=== PATIENT | female | born 1990 | race African-American/Black ===

== ENCOUNTER 2017-11-04 17:49 | Emergency (ER) | payer MEDICAID ==
[2017-11-04 18:30] VITALS: BP 188/113
--- NOTE | 2017-11-04 18:37 | ED ---
Norman Harris Natalie, scribed for Willy Scott MD on 11/04/17 at 1804 . - HPI Summary HPI Summary: The pt is a 27 y/o F presenting to the ED c/o abd pain starting two hours ago. The pt is 7 months and may be having contractions. The abd pain started as being intermittent, and has since gotten closer together and more constant. She states there was a tearing sensation in her URQ. Her OBGYN is Dr. Puentes. - History of Current Complaint Stated Complaint: POSSIBLE LABOR Hx Obtained From: Patient Chief Complaint: Other: - abd pain, contractions at 7 months Severity: Severe Current Severity: Severe Character: Cramping Aggravating Factors: Nothing Alleviating Factors: Nothing Associated Signs and Symptoms: Positive: Other: - tearing sensation in right abd PMH/Surg Hx/FS Hx/Imm Hx Opthamlomology History: Denies: Hx Legally Blind EENT History: Denies: Hx Deafness Review of Systems Positive: Abdominal Pain Genitourinary: Other - contractions All Other Systems Reviewed And Are Negative: Yes Physical Exam - Physical Exam Triage Information Reviewed: Yes Vital Signs Reviewed: Yes Appearance: Positive: Well-Appearing, Pain Distress - moderate Skin: Positive: Warm, Skin Color Reflects Adequate Perfusion, Dry Head/Face: Positive: Normal Head/Face Inspection Eyes: Positive: EOMI, JARON Neck: Positive: Supple, Nontender Respiratory/Lung Sounds: Positive: Clear to Auscultation, Breath Sounds Present Cardiovascular: Positive: Tachycardia Abdomen Description: Positive: Nontender, Other: - gravid, firm uterus, no Bowel Sounds: Positive: Present Musculoskeletal: Positive: Normal, Strength/ROM Intact Neurological: Positive: Normal, Sensory/Motor Intact, Alert, Oriented to Person Place, Time Psychiatric: Positive: Affect/Mood Appropriate Diagnostics - Vital Signs Vital Signs Temp Pulse Resp BP Pulse Ox 11/04/17 18:26 0 F 118 25 188/113 98 11/04/17 17:49 98.7 F 116 25 188/118 98 - Laboratory Lab Statement: Any lab studies that have been ordered have been reviewed, and results considered in the medical decision making process. Course/Dx - Course Course Of Treatment: Medications reviewed. Allergies noted. DISCUSSED WITH DR BERG WHO ASKS THE PATIENT BE SENT TO L & D. - Diagnoses Provider Diagnoses: Abdominal pain in Discharge - Sign-Out/Discharge Documenting (check all that apply): Discharge - Discharge Plan Condition: Stable Disposition: HOME Discharge Disposition Comment: The pt is discharged to [facility]. Patient Education Materials: (ED), Abdominal Pain in (ED) Referrals: No Primary Care Phys,NOPCP [Primary Care Provider] - Additional Instructions: GO DIRECTLY TO LABOR AND DELIVERY - Billing Disposition and Condition Condition: STABLE Disposition: HOME The documentation as recorded by the Norman bishop Natalie accurately reflects the service I personally performed and the decisions made by me, Willy Scott MD.
== END 2017-11-04 18:26 | disposition home or self-care (01) ==
LOC: ED 17:49
DX: O26.893 Other specified pregnancy related conditions, third trimester (principal); Z3A.30 30 weeks gestation of pregnancy; R10.9 Unspecified abdominal pain
CPT/HCPCS: 99282

== ENCOUNTER 2017-11-04 18:45 | Emergency (ER) | payer MEDICAID ==
--- NOTE | 2017-11-04 20:23 | RAD ---
Indication: RIGHT lower abdominal pain. 7 months . Comparison: No relevant prior exams available on the [facility] for comparison. Technique: RIGHT unilateral renal ultrasound. Report: 12.9 x 6.0 x 5.2 cm RIGHT kidney demonstrates normal cortical echogenicity and absence of focal lesions, conspicuous stones, or hydronephrosis. Negative for perinephric fluid. IMPRESSION: Negative RIGHT renal ultrasound.
--- NOTE | 2017-11-04 20:28 | RAD ---
INDICATION: RIGHT lower quadrant pain. 7 months . COMPARISON: No relevant prior exams available on the [facility] PACS for comparison. TECHNIQUE: Ultrasound of the right lower quadrant. REPORT AND IMPRESSION: Acoustic window is limited due to gravid uterus. No RIGHT lower quadrant free fluid or lymphadenopathy visualized. The appendix could not be visualized. Nondiagnostic exam due to nonvisualization of the appendix.
--- NOTE | 2017-11-04 20:47 | ED ---
Adrian Harris Tiffany, scribed for Argelia Multani MD on 11/04/17 at 1951 . Abdominal Pain/Female - HPI Summary HPI Summary: The patient is a 27 year old female sent from Dr. Goyal (OBGYN) back to [facility] for further evaluation of RLQ abdominal pain since 16:00 today. States that she felt sharp, stretching, tightening sensation while washing dishes. The patient rates the pain 8/10 in severity. Symptoms aggravated by nothing. Symptoms alleviated by nothing. Has not treated the pain with anything. Patient denies vaginal bleeding, vaginal discharge, nausea, vomiting, diarrhea and fever. Patient is 35 weeks , EDC 12/16/17. No problems with before today per pt. However, Dr. Goyal states that he has no records on her because she has not been established care with his office yet, as she has just moved up from [place], but she does have a scheduled appointment with him. Patient was BIBA earlier today to [facility] and sent to Dr. Goyal in labor and delivery. Pt was determined not to be in labor by nonstress test by Dr. Goyal and FHR was 140, and uterus was nontender. Labs and urine were done while pt was on L&D and were reviewed and not repeated while in the ED the second time (this ED visit). Pt was not given anything for pain when she saw Dr. Goyal. Pt feels like she has had yeast infection recently. Dr. Goyal advised pt to see him 11/06/17 if she is cleared for other medical causes of her RLQ abd pain. Patient has been before, A0. Denies history of ovarian problems. No abdominal surgeries. While in room, BP 149/95, heart rate 99, O2 sat 100, and resp 20. Dr. Goyal noted some elevated BP's while in L&D, but then BP was 130's/70's, so he did not treat the HTN. Pt had hx gestational HTN with her prior . Pt had no protein in her urine or elevated LFT's to suggest eclampsia when in L&D. - History of Current Complaint Chief Complaint: EDAbdPain Stated Complaint: ABD PAIN Hx Obtained From: Patient ?: Yes Onset/Duration: Sudden Onset, Lasting Hours - Since 16:00 today, Still Present Timing: Constant Severity Currently: Moderate Pain Intensity: 7 Location: Other - Right sided Character: Other: - sharp, stretching, tightening sensation Aggravating Factor(s): Nothing Alleviating Factor(s): Nothing Associated Signs and Symptoms: Positive: Negative - vaginal bleeding, vaginal discharge, nausea, vomiting, diarrhea and fever Allergies/Adverse Reactions: Allergies Allergy/AdvReac Type Severity Reaction Status Date / Time Penicillins Allergy Hives Verified 11/04/17 18:51 pcn Allergy Hives Uncoded 11/04/17 18:51 PMH/Surg Hx/FS Hx/Imm Hx Previously Healthy: No - gestational HTN with prior History: Denies: Hx Kidney Stones Sensory History: Denies: Hx Legally Blind, Hx Deafness Opthamlomology History: Denies: Hx Legally Blind - Surgical History Surgery Procedure, Year, and Place: No abdominal surgeries - Immunization History Date of Influenza Vaccine: fall 2016 Infectious Disease History: No Infectious Disease History: Denies: Traveled Outside the [place] in Last 30 Days - Family History Known Family History: Positive: Other - Mother and older sister with hx of kidney stones - Social History Lives: With Family Alcohol Use: None Hx Substance Use: No Substance Use Type: Reports: None Hx Tobacco Use: No Smoking Status (MU): Never Smoked Tobacco Review of Systems Negative: Fever Cardiovascular: Negative Respiratory: Negative Positive: Abdominal Pain - RLQ; sharp, stretching, tightening sensation . Negative: Vomiting, Diarrhea, Nausea Genitourinary: Negative - Vaginal bleeding, vaginal discharge Positive: no symptoms reported Skin: Negative Neurological: Negative Psychological: Normal All Other Systems Reviewed And Are Negative: Yes Physical Exam - Summary Physical Exam Summary: Appearance: Patient is very uncomfortable, lying on her left side, restless on stretcher with pain. She is . She is hypertensive. Skin: Warm, color reflects adequate perfusion, dry Head: Normal Head/Face inspection Eyes: Conjunctiva clear ENT: Normal inspection Neck: Supple, no nodes, no JVD. Respiratory: Lungs clear, Normal breath sounds, no respiratory distress Cardio: RRR, No murmur, pulses normal, brisk capillary refill Abdomen: Fundus is at the costal margin. movement is palpable. Uterus is nontender. She is tender in RLQ with guarding, no rebound; No CVAT Bowel sounds: present Musculoskeletal: Strength Intact/ ROM intact. No calf tenderness. No edema. Psychological: Normal Neuro: Alert, muscle tone normal, no focal deficit, not hyperreflexic Triage Information Reviewed: Yes Vital Signs On Initial Exam: Initial Vitals Temp Pulse Resp BP Pulse Ox 98.3 F 93 14 0/0 99 11/04/17 18:52 11/04/17 18:52 11/04/17 18:52 11/04/17 18:52 11/04/17 18:52 Vital Signs Reviewed: Yes Diagnostics - Vital Signs Vital Signs Temp Pulse Resp BP Pulse Ox 11/04/17 18:52 98.3 F 93 14 0/0 99 - Laboratory Lab Statement: Any lab studies that have been ordered have been reviewed, and results considered in the medical decision making process. - Additional Comments Diagnostic Additional Comments: Negative RIGHT renal ultrasound per radiologist. ED physician has reviewed this report. Per radiologist, ppendix ultrasound shows Acoustic window is limited due to gravid uterus. No RIGHT lower quadrant free fluid or lymphadenopathy visualized. The appendix could not be visualized. Nondiagnostic exam due to nonvisualization of the appendix. ED physician has reviewed this report. Re-Evaluation - Re-Evaluation First Eval Re-Evaluation Time: 20:37 Change: Improved Comment: Patient is more comfortable and is still having the RLQ pain. BP was 158/92 then 138/76 on repeat. Second Eval Re-Evaluation Time: 22:00 Change: Unchanged Comment: BP still 150's systolic. Pain improved but would like pain med IV. Abdominal Pain Fem Course/Dx - Course Course Of Treatment: Patient allergies noted. Labs from L&D just prior to this ED visit, were reviewed with normal white count, no blood or protein in urine, normal LFT's. Negative renal ultrasound for hydronephrosis or ureteral calculus. Appendix was not visualized in appendix ultrasound. Dr. Hedrick ( surgery) consults and advises that her presentation is not consistent with acute appendicitis. Dr. Goyal (OBGYN) recommends getting formal and ovary ultrasounds. If blood pressure remains above 150 systolic, 90 diastolic, then patient can be prescribed labetalol. Patient should follow up in office with Dr. Goyal, call 11/06/17 to schedule appointment. Patient will be signed out to Dr. Mckee at shift change, awaiting ultrasound reports and management of HTN and pain. - Diagnoses Differential Diagnosis: Positive: Appendicitis, Ovarian Cyst, , Other - placenta previa, abruptio placenta Provider Diagnoses: with 35 completed weeks gestation, RLQ abdominal pain, Hypertension affecting in third trimester - Provider Notifications Discussed Care Of Patient With: Talia Hedrick Time Discussed With Above Provider: 20:41 Instructed by Provider To: Other - Dr. Hedrick agrees to come down to evaluate the patient. Dr. Goyal recommended ultrasound and ovary ultrasound at 20:51. At 21:00, Dr. Hedrick does not feel it is an acute appendix. At 21:17, Dr. Goyal wants the formal ultrasound of ovary and . He says if BP remains above 150 systolic, 90 diastolic, then patient can be given labetalol. She should follow up with him in office, call 11/06/17. Discharge - Sign-Out/Discharge Documenting (check all that apply): Sign-Out Patient Signing out patient TO: Pacheco Mckee - Awaiting ultrasound report, management of HTN and pain - Discharge Plan Referrals: Sebastián Goyal MD [Medical Doctor] - 2 Days [facility] PHYSICIAN REFERRAL [Outside] - As Soon As Possible The documentation as recorded by the Adrian bishop Tiffany accurately reflects the service I personally performed and the decisions made by me, Argelia Multani MD.
--- NOTE | 2017-11-04 21:04 | CONSULT ---
Consult Consult: Surgery Consult Asked by Dr. Multani to evaluate a pt. with abdominal pain and a negative sono. Ms. Platt is a 27 yo 35 wk gravid female who reports that about 4-5 hours ago she felt a sharp pain in the RLQ. This was followed by a "pulling" pain. After a little while the sharp pain let up, but the pulling pain persisted. She felt nauseated, but did not vomit. She denies fever; diarrhea or constipation, dysuria. She is followed by Dr. Goyal for her . She says the pain hasn't changed since that first change. PMHx: none Meds: pre-kendy vitamins. All: PCN ROS: neg. SH: neg. tob.; neg. EtOH; neg. IVDA FH: mother had cancer, possibly colon; father had heart disease PE: general: WDWN female in NAD Vital Signs 11/04/17 18:52 Temperature 98.3 F Pulse Rate 93 Respiratory 14 Rate Blood Pressure 0/0 (mmHg) O2 Sat by Pulse 99 Oximetry HEENT: anicteric sclerae, moist oral mucosa, neg. cervical adenopathy lungs: clear to ausc. heart: reg. no murmurs abd: good BS, soft, gravid, mildly tender in right suprapubic area; no guarding or rebound; neg. CVAT ext: neg. cyanosis edema A/P: Doubt appendicitis; further management per Dr. Multani and Dr. Goyal. Thanks, CLFostnohemy
--- NOTE | 2017-11-04 22:00 | RAD ---
Indication: RIGHT side pain. 35 weeks gestation. Comparison: Limited RIGHT lower quadrant ultrasound of the same date and RIGHT renal ultrasound of the same day. Technique: Limited transabdominal obstetrical ultrasound. REPORT: Single intrauterine fetus is in cephalic presentation. Spontaneous motion and cardiac activity present. heart rate: 134 bpm. The volume of amniotic fluid is qualitatively normal. Amniotic fluid index is 15.04 cm. (Normal range 5-25 cm) The cervix could not be visualized. Anterior placenta is unremarkable for gestational age. Mean BPD: 8.62 cm corresponding to 34 weeks 6 days Mean HC: 31.80 cm corresponding to 35 weeks 6 days Mean AC: 28.25 cm corresponding to 32 weeks 2 days Mean FL: 7.08 cm corresponding to 36 weeks 3 days Composite gestational age: 34 weeks 6 days HC / AC ratio: 1.13 weight: 2341 g. +/- 342 g. Poor visualization of the four-chamber heart view on grayscale and cine loop limiting assessment. Images through the RIGHT adnexal region fails to demonstrate the RIGHT ovary. IMPRESSION: 1. Single intrauterine gestation with estimated gestational age based on this exam of 34 weeks 6 days. Normal movement and cardiac activity. Normal range amniotic fluid volume. 2. The cervix could not be visualized precluding assessment of the cervix and for placenta previa. 3. Poor visualization of the four-chamber heart view on grayscale and cine loop limiting assessment. 4. Images through the RIGHT adnexal region fails to demonstrate the RIGHT ovary.
[2017-11-04] MEDS ORDERED: diPHENhydraMINE IV* 50 MG/ML 1 ml VIAL (BENADRYL) IV ONE (22:28)
[2017-11-04] MEDS ORDERED: Morphine INJ* 4 MG/ML 1 ML CARPUJECT IV ONE (22:28)
[2017-11-04] MEDS ORDERED: Morphine INJ* 2 MG/ML 1 ML CARPUJECT ONE ×2 (22:49)
[2017-11-04] MEDS ORDERED: Morphine INJ* 2 MG/ML 1 ML CARPUJECT IV ONE (22:58)
[2017-11-05] MEDS ORDERED: Labetalol TAB* 200 MG PO ONE (00:15)
[2017-11-05 02:44] VITALS: BP 135/73
--- NOTE | 2017-11-05 05:20 | ED ---
I, ArlynPaola, scribed for Pacheco Mckee MD on 11/05/17 at 0013 . Progress - Progress Note Progress Note: Pt care assumed from Dr. Multani. Pt's BP is up, but her pain was not controlled. Benadryl/Morphine controlled pain. BP remained 141 systolic. Started Labetalol orally. Preeclampsia r/o -- no peripheral edema, LFT/Plt change, or proteinuria. Labor had been ruled out as well as renal colic and ovarian pathology. Surgery had been consulted by Dr Multani -- nl appendix on US. Webb-Arredondo vs ABD pain in preg. No torsion, appy, stone, abruption, etc. OB had seen and ruled out true labor. D/C to f/u on Monday with OB. Rx for oral labetalol. Re-Evaluation - Re-Evaluation First Eval Re-Evaluation Time: 20:37 Change: Improved Comment: Patient is more comfortable and is still having the RLQ pain. BP was 158/92 then 138/76 on repeat. Second Eval Re-Evaluation Time: 22:00 Change: Unchanged Comment: BP still 150's systolic. Pain improved but would like pain med IV. Third Eval Re-Evaluation Time: 00:12 Change: Improved Comment: Pt reports her pain is improved Course/Dx - Course Course Of Treatment: Patient allergies noted. Labs from L&D just prior to this ED visit, were reviewed with normal white count, no blood or protein in urine, normal LFT's. Negative renal ultrasound for hydronephrosis or ureteral calculus. Appendix was not visualized in appendix ultrasound. Dr. Hedrick ( surgery) consults and advises that her presentation is not consistent with acute appendicitis. Dr. Goyal (OBGYN) recommends getting formal and ovary ultrasounds. If blood pressure remains above 150 systolic, 90 diastolic, then patient can be prescribed labetalol. Patient should follow up in office with Dr. Goyal, call 11/06/17 to schedule appointment. Patient will be signed out to Dr. Mckee at shift change, awaiting ultrasound reports and management of HTN and pain. - Diagnoses Provider Diagnoses: with 35 completed weeks gestation, RLQ abdominal pain, Hypertension affecting in third trimester, Abdominal pain during - Provider Notifications Time Discussed With Above Provider: 20:41 Instructed by Provider To: Other - Dr. Hedrick agrees to come down to evaluate the patient. Dr. Goyal recommended ultrasound and ovary ultrasound at 20:51. At 21:00, Dr. Hedrick does not feel it is an acute appendix. At 21:17, Dr. Goyal wants the formal ultrasound of ovary and . He says if BP remains above 150 systolic, 90 diastolic, then patient can be given labetalol. She should follow up with him in office, call 11/06/17. - Critical Care Time Critical Care Time: 30-74 min - CCT is exclusive of separately billable procedures. Includes mult re-evals, consults and complex MDM. Discharge - Sign-Out/Discharge Documenting (check all that apply): Discharge - Discharge Plan Condition: Improved Disposition: HOME Prescriptions: Labetalol TAB* [Trandate TAB*] 200 mg PO BID #60 tab Patient Education Materials: Abdominal Pain in (ED), Hypertension During (ED) Referrals: [facility] PH[facility]IAN REFERRAL [Outside] - As Soon As Possible Sebastián Goyal MD [Medical Doctor] - 2 Days Additional Instructions: You must be rechecked by your OBGYN on Monday. Stay well hydrated. Use tylenol and or benadryl for discomfort. You must NOT use ibuprofen, aleve or aspirin Return with swelling on the legs, spots in your vision, headaches, uncontrolled pain, vomiting, fever over 100.5 or other concerns as discussed. - Billing Disposition and Condition Condition: IMPROVED Disposition: HOME The documentation as recorded by the Arlyn bishop Emily accurately reflects the service I personally performed and the decisions made by me, Pacheco Mckee MD.
== END 2017-11-05 01:00 | disposition home or self-care (01) ==
LOC: ED 18:45
DX: O26.893 Other specified pregnancy related conditions, third trimester (principal); O16.3 Unspecified maternal hypertension, third trimester; R10.31 Right lower quadrant pain; Z3A.35 35 weeks gestation of pregnancy
CPT/HCPCS: 76705; 76775; 76815; 96374; 96375; 99283; A9270-GY; J1200; J2270

== ENCOUNTER 2019-10-23 12:28 | Emergency (ER) | payer OTHER ==
--- NOTE | 2019-10-23 12:30 | UC ---
Respiratory Complaint HPI - HPI Summary HPI Summary: 29 yo female presents with URI symptoms. She tells me that for the last 3 days she has had subjective fever and subjective SOB with a dry cough. Also has fatigue and body aches. She has been taking OTC tylenol with little relief. Wants to sleep all day. She works at [employer]. She is smoking daily. Denies chest pain, abdominal pain, n/v/d/c, dysuria, back pain. No travel or known exposure to COVID. She did get a flu shot this year - History of Current Complaint Stated Complaint: SHORTNESS OF BREATH Hx Obtained From: Patient Onset/Duration: Sudden Onset Severity Initially: Moderate Severity Currently: Moderate Pain Intensity: 5 Pain Scale Used: 0-10 Numeric - Allergies/Home Medications Allergies/Adverse Reactions: Allergies Allergy/AdvReac Type Severity Reaction Status Date / Time latex Allergy Hives Verified 10/23/19 12:33 Penicillins Allergy Hives Verified 10/23/19 12:33 Home Medications: Home Medications Albuterol HFA INHALER* [Ventolin HFA Inhaler*] 1 puff INH Q6H PRN #1 mdi [Rx] Benzonatate CAP* [Tessalon 100 MG CAP*] 100 mg PO TID PRN #21 cap 10/23/19 [Rx] PMH/Surg Hx/FS Hx/Imm Hx - Additional Past Medical History Additional PMH: None - Surgical History Surgical History: None Surgery Procedure, Year, and Place: No abdominal surgeries - Family History Known Family History: Positive: Other - Mother and older sister with hx of kidney stones - Social History Occupation: Employed Full-time Lives: With Family Alcohol Use: None Substance Use Type: None Smoking Status (MU): Light Every Day Tobacco Smoker Type: Cigarettes - Immunization History Most Recent Influenza Vaccination: none Most Recent Pneumonia Vaccination: not indicated Review of Systems All Other Systems Reviewed And Are Negative: No Constitutional: Positive: Fever - subjective, Fatigue, Other - Body aches Skin: Positive: Negative Eyes: Positive: Negative ENT: Positive: Negative Respiratory: Positive: Cough Cardiovascular: Positive: Negative Gastrointestinal: Positive: Negative Neurological/Mental Status: Positive: Negative Psychological: Positive: Negative Physical Exam - Summary Physical Exam Summary: GENERAL: NAD. WDWN. No pain distress. SKIN: No rashes, sores, lesions, or open wounds. HEENT: Head: AT/NC Eyes: EOM intact. Conjunctiva clear without inflammation or discharge. Ears: Hearing grossly normal. TMs intact, no bulging, erythema, or edema. Nose: Nasal mucosa pink and moist. NTTP maxillary and frontal sinus. Throat: Posterior oropharynx without exudates, erythema, or tonsillar enlargement. Uvula midline. NECK: Supple. Nontender. No lymphadenopathy. CHEST: CTAB. No r/r/w. No accessory muscle use. Breathing comfortably and in no distress. CV: RRR. Pulses intact. Cap refill <2seconds NEURO: Alert. PSYCH: Age appropriate behavior. Triage Information Reviewed: Yes Vital Signs: Vital Signs: Temp Pulse Resp BP Pulse Ox 98.7 F 93 22 140/82 99 10/23/19 13:22 10/23/19 13:22 10/23/19 13:22 10/23/19 13:22 10/23/19 13:22 Laboratory Tests 10/23/19 13:00 Influenza A (Rapid) Negative Influenza B (Rapid) Negative Vital Signs Reviewed: Yes Respiratory Course/Dx - Course Course Of Treatment: POC flu negative. 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 You are being tested for COVID-19. You need to quarantine yourself in a bedroom and bathroom only you are using. You may not leave the house. [facility] will contact you and notify of results when they are available. Advised to be on home isolation until cleared by the health department. Go to ED for increased SOB or any difficulty breathing - new or worsening symptoms. - Differential Dx/Diagnosis Provider Diagnosis: Viral syndrome Discharge ED - Sign-Out/Discharge Documenting (check all that apply): Patient Departure All imaging exams completed and their final reports reviewed: No Studies - Discharge Plan Condition: Stable Disposition: HOME Prescriptions: Albuterol HFA INHALER* [Ventolin HFA Inhaler*] 1 puff INH Q6H PRN #1 mdi PRN Reason: Sob/Wheezing Benzonatate CAP* [Tessalon 100 MG CAP*] 100 mg PO TID PRN #21 cap PRN Reason: Cough Patient Education Materials: Viral Syndrome (ED) Referrals: No Primary Care Phys,NOPCP [Primary Care Provider] - Additional Instructions: FLU TEST NEGATIVE TODAY You are being tested for COVID-19. You need to quarantine yourself in a bedroom and bathroom only you are using. You may not leave the house. [facility] will contact you and notify of results when they are available. Advised to be on home isolation until cleared by the health department. Go to ED for increased SOB or any difficulty breathing - new or worsening symptoms. - Billing Disposition and Condition Condition: STABLE Disposition: Home
[2019-10-23 13:13] LABS: Influenza A Molecular Negative (Negative); Influenza B Molecular Negative (Negative)
[2019-10-23 13:24] VITALS: BP 140/82
== END 2019-10-23 13:29 | disposition home or self-care (01) ==
LOC: UCEAST 12:28
DX: B34.9 Viral infection, unspecified (principal); R06.02 Shortness of breath; R05 Cough; R53.83 Other fatigue; F17.210 Nicotine dependence, cigarettes, uncomplicated; R52 Pain, unspecified; Z91.040 Latex allergy status; Z88.0 Allergy status to penicillin
CPT/HCPCS: 99211; G0463; U0002